=== PATIENT | female | born 1985 | race American Indian/Alaskan Native ===

== ENCOUNTER 2019-04-05 12:53 | Emergency (ER) | payer OTHER ==
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
--- NOTE | 2019-04-05 13:54 | XRay Report ---
PROCEDURE: XR SPINE CERVICAL 2-3V TECHNIQUE: 3 views of the cervical spine HISTORY: Neck pain COMPARISON: None FINDINGS: Vertebral heights and alignment are maintained. Disc spaces are maintained. There is no fracture seen . Prevertebral soft tissues are normal. IMPRESSION: There is no significant abnormality identified. This document is electronically signed by Jerri Wadsworth MD., April 05 2019 01:52:50 PM ET
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
== END 2019-04-05 15:00 | disposition home or self-care (01) ==
LOC: ED 12:53
DX: M25.512 Pain in left shoulder (principal); M25.511 Pain in right shoulder; Z79.899 Other long term (current) drug therapy; V89.2XXA Person injured in unspecified motor-vehicle accident, traffic, initial encounter; Y93.89 Activity, other specified; Y92.488 Other paved roadways as the place of occurrence of the external cause; Y99.8 Other external cause status
CPT/HCPCS: 72040; 99283